=== PATIENT | female | born 1945 | race African-American/Black ===

== ENCOUNTER → 2016-06-06 | Outpatient (CLI) | payer MEDICARE, OTHER ==
[~2016-06-06] MED LIST: ACULAR 3 ML3 ML OS; ASPIRIN 32325 MG/TAB PO; ASPIRIN 81M81 MG/TA2 PO; ASPIRIN E.C. 8181 MG PO; B/P MED; CHOLESTEROL1 POW; FISH OIL SUPER1 SGL PO; FLONASE0.05 MG/AC NS; FLOVENT 110MCG7.9 GM IH; FUROSEMIDE; GLUCOTROL XL10 MG PO; ISORDIL TITRADO30 MG PO; JANUVIA 100MG100 MG PO; JANUVIA100 MG PO; KLOR-CON M1010 MEQ PO; LANTUS SOLOS100 U/ML SQ; LASIX 20MG TABL20 MG PO; LASIX 40MG TABL40 MG PO; LIPITOR 40MG TA40 MG PO; LIPITOR20 MG PO; LISINOPRIL/HCTZ1 TA2 PO; LORTAB 5/500 501 TAB PO; METFORMIN500 MG PO; NAPROSYN500 MG PO; NEURONTIN300 MG/CAP PO; NEXIUM 20MG20 MG PO; NITROSTAT0.3 MG SL; NITROSTAT0.4 MG/TAB SL; NORVASC 10MG10 MG PO; NORVASC 5MG5 MG/TAB PO; OCUFLOX OPHTH DR5 ML; OMNICEF 300MG300 MG PO; PEPCID 20MG TAB20 MG PO; PHENERGAN 25 TA25 MG PO; PHENERGAN25 MG RC; PLAVIX 75MG TAB75 MG PO; PRAVACHOL 40MG40 MG PO; PRED FORTE 1 ML1 ML OP; PRED FORTE 1 ML1 ML OU; PRILOSEC 20MG20 MG PO; PRINZIDE 25 MG-1 TAB PO; SINGULAIR; SINGULAIR10 MG PO; TOPROL XL 25MG25 MG PO; VENTOLIN0.09 MG IH; VITAMIN D 50,1.25 MG PO; ZETIA 10MG TAB10 MG PO; ZITHROMAX 250M250 MG PO; ZYRTEC 10MG10 MG PO; blood pressure med; cholesterol med
== END ==
LOC: COL.PUL 11:50
DX: R05 Cough (principal)
CPT/HCPCS: J7674

== ENCOUNTER 2016-07-30 12:56 | Observation (INO) | payer MEDICARE, OTHER ==
[~2016-07-30] VITALS: Ht 162.6 cm; Wt 89.9 kg
[~2016-07-30 12:56] MED LIST changes: -ACULAR 3 ML3 ML OS; -FLOVENT 110MCG7.9 GM IH; -GLUCOTROL XL10 MG PO; -NITROSTAT0.3 MG SL; -NORVASC 10MG10 MG PO; -OMNICEF 300MG300 MG PO; -PRAVACHOL 40MG40 MG PO; -PRED FORTE 1 ML1 ML OU; -PRILOSEC 20MG20 MG PO; -ZYRTEC 10MG10 MG PO
[2016-07-30 13:06] VITALS: BP 146/58; PULSE 67; TEMP 97.7
[2016-07-30] MEDS ORDERED: LASIX 20MG TABL20 MG PO (14:36)
[2016-07-30] MEDS ORDERED: PRED FORTE 1 ML1 ML OU (14:37)
[2016-07-30] MEDS ORDERED: ZYRTEC 10MG10 MG PO (14:38)
[2016-07-30] MEDS ORDERED: ACULAR 3 ML3 ML OS (14:39)
[2016-07-30] MEDS ORDERED: NORVASC 10MG10 MG PO (14:39)
[2016-07-30] MEDS ORDERED: PRAVACHOL 40MG40 MG PO (14:39)
[2016-07-30] MEDS ORDERED: GLUCOTROL XL10 MG PO (14:40)
[2016-07-30] MEDS ORDERED: FLOVENT 110MCG7.9 GM IH (14:40)
[2016-07-30] MEDS ORDERED: NITROSTAT0.3 MG SL (14:43)
[2016-07-30] MEDS ORDERED: PRILOSEC 20MG20 MG PO (14:43)
[2016-07-30 18:53] VITALS: BP 138/69; PULSE 62; TEMP 98.3
[2016-07-30 21:19] VITALS: BP 140/55; PULSE 64; TEMP 97.9
[2016-07-31] VITALS (12 sets, daily range): BP systolic 131–158; BP diastolic 56–84; PULSE 56–72; TEMP 97.8–98.5
[2016-08-01 01:19] VITALS: BP 109/52; PULSE 55; TEMP 98.5
[2016-08-01 06:27] VITALS: BP 116/54; PULSE 60; TEMP 98.5
[2016-08-08] MEDS ORDERED: OMNICEF 300MG300 MG PO (17:43)
== END 2016-08-01 09:35 | disposition home or self-care (01) ==
LOC: SURG 12:56 → SDCO 12:56 → SURG 12:57 → SDCO 18:00 → SURG 07-31 09:28
DX: N20.1 Calculus of ureter (principal); Z95.5 Presence of coronary angioplasty implant and graft; E78.00 Pure hypercholesterolemia, unspecified; E11.9 Type 2 diabetes mellitus without complications; Z79.4 Long term (current) use of insulin; I10 Essential (primary) hypertension; I25.10 Atherosclerotic heart disease of native coronary artery without angina pectoris; G47.33 Obstructive sleep apnea (adult) (pediatric); K21.9 Gastro-esophageal reflux disease without esophagitis
CPT/HCPCS: OP; C1769; C2617; G0378; G0379; J0690; J2270; J2405; J2704; J3010; J7030; Q9967

== ENCOUNTER 2016-08-06 11:01 | Emergency (ER) | payer MEDICARE, OTHER ==
[~2016-08-06] VITALS: Ht 162.6 cm; Wt 90.5 kg
[~2016-08-06 11:01] MED LIST changes: +ACULAR 3 ML3 ML OS; +FLOVENT 110MCG7.9 GM IH; +GLUCOTROL XL10 MG PO; +NITROSTAT0.3 MG SL; +NORVASC 10MG10 MG PO; +PRAVACHOL 40MG40 MG PO; +PRED FORTE 1 ML1 ML OU; +PRILOSEC 20MG20 MG PO; +ZYRTEC 10MG10 MG PO
[2016-08-06 11:02] VITALS: TEMP 98.6
[2016-08-06 12:14] LABS: BASO % 0.3 % (0.0-2.0); EOS # 0.4 (0.0-0.7); GRAN # 3.6 (1.4-6.5); HEMATOCRIT 37.5 % (37.0-47.0); LYMPH # 1.8 (1.2-3.4); LYMPH % 29.2 % (20.0-51.0); MEAN CELL VOLUME 84 fl (80.0-100.0); MEAN CORPUSCULAR HEMOGLOBIN 26 pg (27.0-31.0); MEAN CORPUSCULAR HGB CONC 31 g/dl (33.0-37.0); MEAN PLATELET VOLUME 11.5 fl (7.4-10.4); MONO # 0.4 (0.1-0.6); MONO % 6.2 % (1.7-9.3); PLATELET COUNT 235 K/mm3 (130-400); RED BLOOD COUNT 4.45 M/mm3 (4.10-5.30); WHITE BLOOD COUNT 6.1 K/mm3 (4.8-10.8)
[2016-08-06 12:18] LABS: HEMOGLOBIN 11.7 g/dl (12.5-16.0)
[2016-08-06 12:22] LABS: ADJUSTED CALCIUM 9.2 mg/dL (8.4-10.2); ALANINE AMINOTRANSFERASE 21 U/L (9-52); ALBUMIN 3.7 gm/dL (3.5-5.0); ALKALINE PHOSPHATASE 87 U/L (50-136); ANION GAP 14 mmol/L (7-16); BILIRUBIN,TOTAL 0.5 mg/dL (0.0-1.0); BLOOD UREA NITROGEN 15 mg/dL (7-17); CARBON DIOXIDE 27 mmol/L (22-30); CHLORIDE 104 mmol/L (98-107); CREATININE, serum 0.79 mg/dL (0.52-1.25); GLUCOSE 160 mg/dL (74-106); LIPASE 65 U/L (23-300); POTASSIUM 3.8 mmol/L (3.4-5.0); SODIUM 145 mmol/L (137-145); TOTAL PROTEIN 6.8 gm/dL (6.4-8.2)
[2016-08-06 12:26] LABS: COLLECTION METHOD CLEAN CATCH
[2016-08-06 12:33] LABS: B-TYPE NATRIURETIC PEPTIDE 25 pg/mL (0-125)
[2016-08-06 12:34] LABS: TROPONIN-I < 0.012 ng/mL (0.000-0.034)
[2016-08-06 12:36] LABS: PH 6 (5-8); URINE APPEARANCE Hazy; URINE BACTERIA None Seen /hpf; URINE BILIRUBIN Negative (NEGATIVE); URINE BLOOD 3+ (NEGATIVE); URINE CALCIUM OXALATE CRYSTAL Present /hpf; URINE COLOR Yellow; URINE GLUCOSE Negative (NEGATIVE); URINE KETONE Negative (NEGATIVE); URINE LEUKOCYTE ESTERASE 2+ (NEGATIVE); URINE PROTEIN(semi-quant) 1+ (NEGATIVE); URINE RBC >50 /hpf; URINE UROBILINOGEN Negative (NEGATIVE)
[2016-08-06 16:13] VITALS: BP 134/78; PULSE 63
[2016-08-08] MEDS ORDERED: OMNICEF 300MG300 MG PO (17:43)
== END 2016-08-06 16:16 | disposition home or self-care (01) ==
LOC: COL.ER 11:01
PROVIDERS: Emergency Medicine
DX: R07.89 Other chest pain (principal); E11.9 Type 2 diabetes mellitus without complications; I10 Essential (primary) hypertension; I25.10 Atherosclerotic heart disease of native coronary artery without angina pectoris; E78.00 Pure hypercholesterolemia, unspecified; M19.90 Unspecified osteoarthritis, unspecified site; Z79.84 Long term (current) use of oral hypoglycemic drugs; Z95.5 Presence of coronary angioplasty implant and graft; Z96.0 Presence of urogenital implants; Z90.710 Acquired absence of both cervix and uterus
CPT/HCPCS: J7030

== ENCOUNTER 2017-04-02 16:11 | Observation (INO) | payer MEDICARE, OTHER ==
[~2017-04-02] VITALS: Ht 162.6 cm; Wt 90.6 kg
[~2017-04-02 16:11] MED LIST changes: +OMNICEF 300MG300 MG PO
[2017-04-02 19:34] VITALS: BP 123/44; PULSE 70; TEMP 98.3
[2017-04-02 20:17] VITALS: BP 131/45; PULSE 72
[2017-04-02 23:41] VITALS: BP 145/59; PULSE 54; TEMP 97.9
[2017-04-03 03:35] VITALS: BP 129/58; PULSE 75; TEMP 97.9
[2017-04-03 06:43] LABS: BASO % 0.3 % (0.0-2.0); EOS # 0.3 (0.0-0.7); EOS % 4.5 % (0-4.0); GRAN # 2.8 (1.4-6.5); GRAN % 47.2 % (42.2-75.2); HEMATOCRIT 38.3 % (37.0-47.0); LYMPH # 2.4 (1.2-3.4); LYMPH % 40.4 % (20.0-51.0); MEAN CELL VOLUME 84 fl (80.0-100.0); MEAN CORPUSCULAR HEMOGLOBIN 26 pg (27.0-31.0); MEAN CORPUSCULAR HGB CONC 31 g/dl (33.0-37.0); MEAN PLATELET VOLUME 12.7 fl (7.4-10.4); MONO # 0.4 (0.1-0.6); MONO % 7.4 % (1.7-9.3); PLATELET COUNT 186 K/mm3 (130-400); RED BLOOD COUNT 4.55 M/mm3 (4.10-5.30)
[2017-04-03 06:59] LABS: ALBUMIN 3.6 gm/dL (3.5-5.0); BILIRUBIN,TOTAL 0.3 mg/dL (0.0-1.0); CALCIUM 8.9 mg/dL (8.4-10.2); CREATININE, serum 0.81 mg/dL (0.52-1.25); POTASSIUM 3.7 mmol/L (3.4-5.0); TOTAL PROTEIN 6.5 gm/dL (6.4-8.2)
[2017-04-03 07:00] LABS: HEMOGLOBIN 11.8 g/dl (12.5-16.0)
[2017-04-03 07:41] VITALS: BP 148/69; PULSE 75; TEMP 98.4
[2017-04-03] MEDS ORDERED: PLAVIX 75MG TAB75 MG PO (07:59)
[2017-04-03] MEDS ORDERED: IMDUR 60MG60 MG/TAB PO (07:59)
[2017-04-03] MEDS ORDERED: HCTZ 25MG TAB25 MG PO (08:00)
[2017-04-03] MEDS ORDERED: CRESTOR40 MG PO (08:00)
[2017-04-03 09:19] VITALS: BP 138/40; BP 147/73; PULSE 72; PULSE 75
[2017-04-03 09:21] VITALS: BP 150/84; PULSE 82
[2017-04-03 12:54] VITALS: BP 141/73; PULSE 90; TEMP 98.9
== END 2017-04-03 16:29 | disposition home or self-care (01) ==
LOC: MEDICAL 16:11
PROVIDERS: Physician Assistant
DX: R42 Dizziness and giddiness (principal); R07.89 Other chest pain; I25.10 Atherosclerotic heart disease of native coronary artery without angina pectoris; I10 Essential (primary) hypertension; E78.5 Hyperlipidemia, unspecified; E11.9 Type 2 diabetes mellitus without complications; G47.33 Obstructive sleep apnea (adult) (pediatric); Z79.01 Long term (current) use of anticoagulants; Z79.84 Long term (current) use of oral hypoglycemic drugs; Z95.5 Presence of coronary angioplasty implant and graft; Z90.710 Acquired absence of both cervix and uterus; Z82.49 Family history of ischemic heart disease and other diseases of the circulatory system; Z83.3 Family history of diabetes mellitus; Z80.0 Family history of malignant neoplasm of digestive organs
CPT/HCPCS: G0378; G0379; G8978-GP; G8979-GP; J1650; J1815; J7030

== ENCOUNTER 2017-08-20 17:20 | Inpatient (IN) | payer MEDICARE, OTHER ==
[~2017-08-20] VITALS: Ht 162.6 cm; Wt 83.8 kg
[2017-08-20] VITALS (7 sets, daily range): BP systolic 129–154; BP diastolic 45–73; PULSE 48–59; TEMP 97.2–98.9
[~2017-08-20 17:20] MED LIST changes: +CRESTOR40 MG PO; +HCTZ 25MG TAB25 MG PO; +IMDUR 60MG60 MG/TAB PO
[2017-08-20] MEDS ORDERED: TYLENOL 325MG325 MG PO (18:33)
[2017-08-20] MEDS ORDERED: PRED FORTE 1 ML1 ML OP (18:33)
[2017-08-20] MEDS ORDERED: ASPIRIN 81M81 MG/TA2 PO (18:34)
[2017-08-20] MEDS ORDERED: PRILOSEC 20MG20 MG PO (18:34)
[2017-08-20] MEDS ORDERED: JARDIANCE10 PO (18:35)
[2017-08-20] MEDS ORDERED: XALATAN EYE DROPS OD (18:35)
[2017-08-20] MEDS ORDERED: TOBRADEX EYE DRO5 ML OP (18:36)
[2017-08-20] MEDS ORDERED: PATANOL OPHTHALM5 ML OD (18:37)
[2017-08-20] MEDS ORDERED: INSLANT SQ (18:38)
[2017-08-20] MEDS ORDERED: ALPHAGAN OPHTH D5 ML OU (18:38)
[2017-08-20 19:02] LABS: CHOLESTEROL 169 mg/dL (120-200); CHOLESTEROL RISK RATIO 4.3; HDL CHOLESTEROL 39 mg/dL; LDL CHOLESTEROL 118 mg/dL; MAGNESIUM 2.1 mg/dL (1.6-2.3); TRIGLYCERIDE 60 mg/dL
[2017-08-20 19:18] LABS: TROPONIN-I < 0.012 ng/mL (0.000-0.034)
[2017-08-21] VITALS (373 sets, daily range): BP systolic 106–155; BP diastolic 52–96; PULSE 53–73; TEMP 97.8–98.2; O2SAT 77–100
[2017-08-21 10:21] LABS: BASO % 0.2 % (0.0-2.0); EOS # 0.3 (0.0-0.7); EOS % 6.7 % (0-4.0); GRAN # 2.6 (1.4-6.5); GRAN % 53.8 % (42.2-75.2); HEMATOCRIT 40.8 % (37.0-47.0); HEMOGLOBIN 12.7 g/dl (12.5-16.0); LYMPH # 1.6 (1.2-3.4); LYMPH % 32.6 % (20.0-51.0); MEAN CELL VOLUME 84 fl (80.0-100.0); MEAN CORPUSCULAR HEMOGLOBIN 26 pg (27.0-31.0); MEAN CORPUSCULAR HGB CONC 31 g/dl (33.0-37.0); MEAN PLATELET VOLUME 12.1 fl (7.4-10.4); MONO # 0.3 (0.1-0.6); MONO % 6.7 % (1.7-9.3); PLATELET COUNT 214 K/mm3 (130-400); RED BLOOD COUNT 4.86 M/mm3 (4.10-5.30); REDCELL DISTRIBUTION WIDTH-CV 13.7 % (11.5-14.5)
[2017-08-21 10:33] LABS: ANION GAP 11 mmol/L (7-16); BLOOD UREA NITROGEN 12 mg/dL (7-17); CARBON DIOXIDE 24 mmol/L (22-30); CHLORIDE 105 mmol/L (98-107); CREATININE, serum 0.78 mg/dL (0.52-1.25); GLUCOSE 112 mg/dL (74-106); POTASSIUM 3.9 mmol/L (3.4-5.0); SODIUM 140 mmol/L (137-145)
[2017-08-21 10:50] LABS: TROPONIN-I < 0.012 ng/mL (0.000-0.034)
[2017-08-21 12:51] LABS: CHOLESTEROL RISK RATIO 4.6
[2017-08-22] VITALS (497 sets, daily range): BP systolic 126–130; BP diastolic 67–89; PULSE 52–62; TEMP 97.4–98; O2SAT 88–100
[2017-08-22 06:01] LABS: BASO % 0.4 % (0.0-2.0); EOS # 0.3 (0.0-0.7); EOS % 5.2 % (0-4.0); GRAN % 55.1 % (42.2-75.2); HEMATOCRIT 39.5 % (37.0-47.0); HEMOGLOBIN 12.4 g/dl (12.5-16.0); LYMPH # 1.7 (1.2-3.4); LYMPH % 30.8 % (20.0-51.0); MEAN CELL VOLUME 83 fl (80.0-100.0); MEAN CORPUSCULAR HEMOGLOBIN 26 pg (27.0-31.0); MEAN CORPUSCULAR HGB CONC 31 g/dl (33.0-37.0); MEAN PLATELET VOLUME 11.9 fl (7.4-10.4); MONO # 0.5 (0.1-0.6); MONO % 8.3 % (1.7-9.3); PLATELET COUNT 196 K/mm3 (130-400); RED BLOOD COUNT 4.74 M/mm3 (4.10-5.30); REDCELL DISTRIBUTION WIDTH-CV 13.6 % (11.5-14.5)
[2017-08-22 06:10] LABS: CALCIUM 8.7 mg/dL (8.4-10.2); CREATININE, serum 0.73 mg/dL (0.52-1.25); POTASSIUM 3.8 mmol/L (3.4-5.0)
[2017-08-22] MEDS ORDERED: TOPROL XL 25MG25 MG PO (09:44)
[2017-08-22] MEDS ORDERED: ZETIA 10MG TAB10 MG PO (11:12)
[2017-08-22] MEDS ORDERED: ASPIRIN 32325 MG/TAB PO (11:28)
== END 2017-08-22 13:45 | disposition home or self-care (01) | DRG 247 ==
LOC: MEDICAL 17:20 → ICU 17:50 → MEDICAL 17:50 → ICU 17:51
PROVIDERS: Family Medicine; Nurse Practitioner Family; Physician Assistant
PROC: 027034Z Dilation of Coronary Artery, One Artery with Drug-eluting Intraluminal Device, Percutaneous Approach (ICD-10-PCS; principal; 2017-08-21)
PROC: 4A023N7 Measurement of Cardiac Sampling and Pressure, Left Heart, Percutaneous Approach (ICD-10-PCS; 2017-08-21)
PROC: B2151ZZ Fluoroscopy of Left Heart using Low Osmolar Contrast (ICD-10-PCS; 2017-08-21)
PROC: B2111ZZ Fluoroscopy of Multiple Coronary Arteries using Low Osmolar Contrast (ICD-10-PCS; 2017-08-21)
DX: I25.110 Atherosclerotic heart disease of native coronary artery with unstable angina pectoris (principal); I10 Essential (primary) hypertension; E78.5 Hyperlipidemia, unspecified; E11.9 Type 2 diabetes mellitus without complications; E66.9 Obesity, unspecified; G47.33 Obstructive sleep apnea (adult) (pediatric); Z79.4 Long term (current) use of insulin; R00.1 Bradycardia, unspecified; Z79.84 Long term (current) use of oral hypoglycemic drugs
CPT/HCPCS: 99223-AI; 99239; C1725; C1769; C1874; C1887; C9607; G0378; G0379; J0583; J1644; J1650; J1815; J2250; J2270; J3010; J7030

== ENCOUNTER 2017-08-26 18:03 | Inpatient (IN) | payer MEDICARE, OTHER ==
[~2017-08-26] VITALS: Ht 162.6 cm; Wt 82.9 kg
[2017-08-26] VITALS (58 sets, daily range): BP systolic 148; BP diastolic 79; PULSE 52; TEMP 97.5; O2SAT 92–99
[~2017-08-26 18:03] MED LIST changes: +ALPHAGAN OPHTH D5 ML OU; +INSLANT SQ; +JARDIANCE10 PO; +PATANOL OPHTHALM5 ML OD; +TOBRADEX EYE DRO5 ML OP; +TYLENOL 325MG325 MG PO; +XALATAN EYE DROPS OD
[2017-08-26 18:51] LABS: BASO % 0.3 % (0.0-2.0); EOS # 0.3 (0.0-0.7); EOS % 4.4 % (0-4.0); GRAN # 4.1 (1.4-6.5); GRAN % 58.5 % (42.2-75.2); HEMOGLOBIN 12.1 g/dl (12.5-16.0); LYMPH % 28.7 % (20.0-51.0); MEAN CELL VOLUME 83 fl (80.0-100.0); MEAN CORPUSCULAR HEMOGLOBIN 26 pg (27.0-31.0); MEAN CORPUSCULAR HGB CONC 32 g/dl (33.0-37.0); MEAN PLATELET VOLUME 12.5 fl (7.4-10.4); MONO # 0.5 (0.1-0.6); MONO % 7.7 % (1.7-9.3); PLATELET COUNT 207 K/mm3 (130-400); RED BLOOD COUNT 4.58 M/mm3 (4.10-5.30)
[2017-08-26 19:01] LABS: ALBUMIN 3.6 gm/dL (3.5-5.0); BILIRUBIN,TOTAL 0.4 mg/dL (0.0-1.0); C-REACTIVE PROTEIN 0.9 mg/dL (0.0-0.9); CALCIUM 9.3 mg/dL (8.4-10.2); CREATININE, serum 0.98 mg/dL (0.52-1.25); POTASSIUM 3.8 mmol/L (3.4-5.0); TOTAL PROTEIN 7.4 gm/dL (6.4-8.2)
[2017-08-26 19:16] LABS: TROPONIN-I 0.047 ng/mL (0.000-0.034)
[2017-08-26 20:13] LABS: PROTHROMBIN TIME 11.8 SECONDS (9.7-12.8)
[2017-08-27] VITALS (486 sets, daily range): BP systolic 83–153; BP diastolic 32–79; PULSE 47–91; TEMP 97.5–98; O2SAT 88–100
[2017-08-27 06:19] LABS: BASO % 0.4 % (0.0-2.0); EOS # 0.3 (0.0-0.7); GRAN # 2.7 (1.4-6.5); GRAN % 48.2 % (42.2-75.2); HEMOGLOBIN 11.9 g/dl (12.5-16.0); LYMPH # 2.1 (1.2-3.4); LYMPH % 36.2 % (20.0-51.0); MEAN CELL VOLUME 83 fl (80.0-100.0); MEAN CORPUSCULAR HEMOGLOBIN 26 pg (27.0-31.0); MEAN CORPUSCULAR HGB CONC 31 g/dl (33.0-37.0); MEAN PLATELET VOLUME 12.3 fl (7.4-10.4); MONO # 0.5 (0.1-0.6); PLATELET COUNT 195 K/mm3 (130-400); RED BLOOD COUNT 4.56 M/mm3 (4.10-5.30)
[2017-08-27 06:23] LABS: CREATININE, serum 0.9 mg/dL (0.52-1.25); POTASSIUM 3.8 mmol/L (3.4-5.0)
[2017-08-27 06:42] LABS: TROPONIN-I 0.046 ng/mL (0.000-0.034)
[2017-08-28 00:09] VITALS: BP 136/60; PULSE 54; TEMP 98.6
[2017-08-28 03:24] VITALS: BP 165/63; PULSE 70; TEMP 98.8
[2017-08-28 07:43] VITALS: BP 140/54; PULSE 68; TEMP 98
[2017-08-28 11:55] VITALS: BP 131/53; PULSE 56; TEMP 98.8
[2017-08-28 16:37] VITALS: BP 136/63; PULSE 50; TEMP 98.4
[2017-08-28 19:45] VITALS: BP 104/64; PULSE 62; TEMP 98.7
[2017-08-29 00:01] VITALS: BP 143/63; PULSE 55; TEMP 98
[2017-08-29 04:44] VITALS: BP 146/49; PULSE 60; TEMP 97.5
[2017-08-29 07:10] VITALS: BP 150/75; PULSE 66; TEMP 97.6
== END 2017-08-29 12:17 | disposition home or self-care (01) | DRG 313 ==
LOC: COL.ER 18:03 → ICU 20:25 → MEDICAL 08-27 15:52
PROVIDERS: Emergency Medicine; Nurse Practitioner
DX: R07.89 Other chest pain (principal); I10 Essential (primary) hypertension; E11.9 Type 2 diabetes mellitus without complications; I25.10 Atherosclerotic heart disease of native coronary artery without angina pectoris; Z95.5 Presence of coronary angioplasty implant and graft; Z79.4 Long term (current) use of insulin; R20.2 Paresthesia of skin; G47.33 Obstructive sleep apnea (adult) (pediatric)
CPT/HCPCS: OP; 99223-AI; 99232-AI; A9502; A9585; G0378; J1650; J1815; J2270; J2405; J2785

== ENCOUNTER 2018-01-21 14:18 | Inpatient (IN) | payer MEDICARE, OTHER ==
[~2018-01-21] VITALS: Ht 162.6 cm; Wt 91.2 kg
[2018-01-21 15:53] VITALS: BP 156/67; PULSE 65; TEMP 97.4
[2018-01-21 16:00] VITALS: BP 155/65; PULSE 67; TEMP 97.6
[2018-01-21] MEDS ORDERED: GLUCOTROL XL10 MG PO (16:45)
[2018-01-21] MEDS ORDERED: ASPIRIN 81M81 MG/TA2 PO (16:46)
[2018-01-21] MEDS ORDERED: DULCOLAX STOOL100 MG PO (16:46)
[2018-01-21] MEDS ORDERED: XALATAN EYE DROPS OU (16:48)
[2018-01-21] MEDS ORDERED: ACULAR 5 ML5 ML OU (16:48)
[2018-01-21] MEDS ORDERED: PATANOL OPHTHALM5 ML OU (16:50)
[2018-01-21] MEDS ORDERED: TOBRADEX EYE DRO5 ML OP (16:50)
[2018-01-21 17:17] LABS: TROPONIN-I < 0.012 ng/mL (0.000-0.034)
[2018-01-21 19:24] VITALS: BP 146/61; PULSE 57; TEMP 97.7
[2018-01-21 23:45] VITALS: BP 133/57; PULSE 65; TEMP 98.2
[2018-01-22] VITALS (19 sets, daily range): BP systolic 116–165; BP diastolic 53–90; PULSE 50–101; TEMP 97.7–98.7
[2018-01-22 06:11] LABS: BASO % 0.2 % (0.0-2.0); EOS # 0.2 (0.0-0.7); EOS % 4.4 % (0-4.0); GRAN # 2.1 (1.4-6.5); GRAN % 43.5 % (42.2-75.2); LYMPH # 2.1 (1.2-3.4); LYMPH % 42.9 % (20.0-51.0); MEAN CELL VOLUME 84 fl (80.0-100.0); MEAN CORPUSCULAR HEMOGLOBIN 26 pg (27.0-31.0); MEAN CORPUSCULAR HGB CONC 31 g/dl (33.0-37.0); MEAN PLATELET VOLUME 12.1 fl (7.4-10.4); MONO # 0.4 (0.1-0.6); MONO % 8.8 % (1.7-9.3); PLATELET COUNT 177 K/mm3 (130-400); RED BLOOD COUNT 4.28 M/mm3 (4.10-5.30); REDCELL DISTRIBUTION WIDTH-CV 14.8 % (11.5-14.5)
[2018-01-22 06:21] LABS: ALANINE AMINOTRANSFERASE 27 U/L (9-52); ALBUMIN 3.1 gm/dL (3.5-5.0); ALKALINE PHOSPHATASE 59 U/L (50-136); ANION GAP 3 mmol/L (7-16); AST,SGOT 23 U/L (15-37); BILIRUBIN,TOTAL 0.2 mg/dL (0.0-1.0); BLOOD UREA NITROGEN 15 mg/dL (7-17); CALCIUM 8.3 mg/dL (8.4-10.2); CARBON DIOXIDE 29 mmol/L (22-30); CHLORIDE 112 mmol/L (98-107); CHOLESTEROL 131 mg/dL (120-200); CHOLESTEROL RISK RATIO 3.1; CREATININE, serum 0.64 mg/dL (0.52-1.25); GLUCOSE 105 mg/dL (74-106); HDL CHOLESTEROL 41 mg/dL; LDL CHOLESTEROL 78 mg/dL; SODIUM 144 mmol/L (137-145); TRIGLYCERIDE 60 mg/dL
[2018-01-22 06:24] LABS: HEMATOCRIT 36.1 % (37.0-47.0)
[2018-01-22 06:30] LABS: TROPONIN-I < 0.012 ng/mL (0.000-0.034)
[2018-01-23 01:10] VITALS: BP 145/63; PULSE 77
[2018-01-23 07:25] VITALS: BP 179/74; PULSE 63; TEMP 98.7
[2018-01-23 08:46] LABS: BASO % 0.4 % (0.0-2.0); EOS # 0.3 (0.0-0.7); EOS % 4.7 % (0-4.0); GRAN # 3.3 (1.4-6.5); GRAN % 57.3 % (42.2-75.2); HEMOGLOBIN 11.7 g/dl (12.5-16.0); LYMPH # 1.7 (1.2-3.4); LYMPH % 30.4 % (20.0-51.0); MEAN CELL VOLUME 83 fl (80.0-100.0); MEAN CORPUSCULAR HEMOGLOBIN 26 pg (27.0-31.0); MEAN CORPUSCULAR HGB CONC 32 g/dl (33.0-37.0); MEAN PLATELET VOLUME 11.7 fl (7.4-10.4); MONO # 0.4 (0.1-0.6); PLATELET COUNT 193 K/mm3 (130-400); RED BLOOD COUNT 4.45 M/mm3 (4.10-5.30); REDCELL DISTRIBUTION WIDTH-CV 14.7 % (11.5-14.5)
[2018-01-23 08:49] LABS: HEMATOCRIT 36.9 % (37.0-47.0)
[2018-01-23 08:56] LABS: CALCIUM 8.6 mg/dL (8.4-10.2); CREATININE, serum 0.64 mg/dL (0.52-1.25); POTASSIUM 3.8 mmol/L (3.4-5.0)
[2018-01-23] MEDS ORDERED: ZESTRIL 20MG TA20 MG PO (09:00)
[2018-01-23] MEDS ORDERED: IMDUR 60MG60 MG/TAB PO (09:00)
[2018-01-23 11:41] VITALS: BP 120/55; PULSE 68; TEMP 98.6
== END 2018-01-23 12:25 | disposition home or self-care (01) | DRG 287 ==
LOC: MEDICAL 14:18
PROVIDERS: Internal Medicine Cardiovascular Disease; Physician Assistant
PROC: B2111ZZ Fluoroscopy of Multiple Coronary Arteries using Low Osmolar Contrast (ICD-10-PCS; principal; 2018-01-22)
PROC: B2151ZZ Fluoroscopy of Left Heart using Low Osmolar Contrast (ICD-10-PCS; 2018-01-22)
PROC: 4A023N7 Measurement of Cardiac Sampling and Pressure, Left Heart, Percutaneous Approach (ICD-10-PCS; 2018-01-22)
PROC: B31H1ZZ Fluoroscopy of Right Upper Extremity Arteries using Low Osmolar Contrast (ICD-10-PCS; 2018-01-22)
DX: R07.89 Other chest pain (principal); I25.10 Atherosclerotic heart disease of native coronary artery without angina pectoris; Z23 Encounter for immunization; I10 Essential (primary) hypertension; E78.5 Hyperlipidemia, unspecified; E11.9 Type 2 diabetes mellitus without complications; Z95.5 Presence of coronary angioplasty implant and graft; G47.33 Obstructive sleep apnea (adult) (pediatric); Z79.4 Long term (current) use of insulin
CPT/HCPCS: C1769; C1887; C9113; G0378; G8987-GO; G8988-GO; J1644; J1650; J1815; J2250; J3010; J7030

== ENCOUNTER 2022-04-17 16:09 | Observation (INO) | payer MEDICARE, OTHER ==
[~2022-04-17] VITALS: Ht 10.2 cm; Wt 88.0 kg
[~2022-04-17 16:09] MED LIST changes: +ACULAR 5 ML5 ML OU; +CEPHALEXIN500 M1 PO; +DULCOLAX STOOL100 MG PO; +MACROBID 1100 MG/CAP PO; -NITROSTAT0.3 MG SL; +PATANOL OPHTHALM5 ML OU; +RANEXA 500MG T500 MG PO; +XALATAN EYE DROPS OU; +ZESTRIL 20MG TA20 MG PO
[2022-04-17 17:23] VITALS: BP 99/45; PULSE 64; TEMP 97.9
--- NOTE | 2022-04-17 18:25 | NUR ---
DR. RODRIGUEZ CALLED TO NOTIFY NEW ADMISSION IS IN ROOM. DIET ORDER GIVEN VIA TELEPHONE ORDER.
--- NOTE | 2022-04-17 18:43 | NUR ---
PT IN BED, ALERT & ORIENTED. ASSISTED TO BATHROOM, GAIT STEADY BUT A LITTLE WEAK. BLOOD GLUCOSE 128. DINNER ORDERED, SNACK/WATER GIVEN. ADMISSION ASSESSMENT COMPLETE. PT AND FAMILY MEMBER ORIENTED TO ROOM. NO COMPLAINTS OTHER THAN BEING HUNGRY AND TIRED.
--- NOTE | 2022-04-17 20:30 | NUR ---
Initial shift assessment. Tele on patient, VSS, alert/oriented x4, Up to bathroom with standby assist, steady on feet- denies pain, called by supervisor mending that patient is covid + and needs to be moved to isolation room-
[2022-04-17 21:31] VITALS: BP 149/51; PULSE 56; TEMP 97.5
[2022-04-17 23:32] LABS: BASO % 0.3 % (0.0-2.0); EOS # 0.2 K/mm3 (0.0-0.7); EOS % 3.3 % (0.0-4.0); GRAN % 61.8 % (42.2-75.2); HEMOGLOBIN 10.3 g/dl (12.5-16.0); LYMPH # 1.7 K/mm3 (1.2-3.4); LYMPH % 26.1 % (20.0-51.0); MEAN CELL VOLUME 83 fl (80.0-100.0); MEAN CORPUSCULAR HEMOGLOBIN 25 pg (27-31); MEAN CORPUSCULAR HGB CONC 30 g/dl (33.0-37.0); MEAN PLATELET VOLUME 11.9 fl (7.4-10.4); MONO # 0.5 K/mm3 (0.1-0.6); MONO % 8.2 % (1.7-9.3); PLATELET COUNT 231 K/mm3 (130-400); RED BLOOD COUNT 4.07 M/mm3 (4.10-5.30); REDCELL DISTRIBUTION WIDTH-CV 14.9 % (11.5-14.5)
[2022-04-17 23:37] LABS: HEMATOCRIT 33.9 % (37.0-47.0)
[2022-04-17 23:48] LABS: ALBUMIN 2.9 gm/dL (3.4-4.8); BILIRUBIN,TOTAL 0.3 mg/dL (0.2-1.2); CALCIUM 8.1 mg/dL (8.4-10.2); CREATININE, serum 0.98 mg/dL (0.57-1.11); POTASSIUM 3.7 mmol/L (3.5-4.5)
[2022-04-18] VITALS (7 sets, daily range): BP systolic 110–164; BP diastolic 50–90; PULSE 55–78; TEMP 97.4–98.2
--- NOTE | 2022-04-18 06:10 | NUR ---
Now in room 303- droplet/contact isolation, Up to bathroom- steady on feet, requesting some hot tea,, understands to call for bathroom- using call light appropriately.
[2022-04-18 07:56] LABS: BASO % 0.3 % (0.0-2.0); EOS # 0.3 K/mm3 (0.0-0.7); EOS % 4.6 % (0.0-4.0); GRAN # 4.4 K/mm3 (1.4-6.5); GRAN % 62.5 % (42.2-75.2); HEMOGLOBIN 10.9 g/dl (12.5-16.0); LYMPH # 1.7 K/mm3 (1.2-3.4); LYMPH % 24.3 % (20.0-51.0); MEAN CELL VOLUME 83 fl (80.0-100.0); MEAN CORPUSCULAR HEMOGLOBIN 25 pg (27-31); MEAN CORPUSCULAR HGB CONC 30 g/dl (33.0-37.0); MEAN PLATELET VOLUME 11.9 fl (7.4-10.4); MONO # 0.6 K/mm3 (0.1-0.6); PLATELET COUNT 247 K/mm3 (130-400); RED BLOOD COUNT 4.35 M/mm3 (4.10-5.30); REDCELL DISTRIBUTION WIDTH-CV 14.9 % (11.5-14.5)
[2022-04-18 08:10] LABS: CALCIUM 8.4 mg/dL (8.4-10.2); CREATININE, serum 0.98 mg/dL (0.57-1.11); POTASSIUM 3.8 mmol/L (3.5-4.5)
--- NOTE | 2022-04-18 10:52 | NUR ---
The PA notified BESSIE that the hospitalist is recommending a CPAP for the patient and they inquired how to go about ordering one. The patient had one in the past, but no longer has one. BESSIE contacted Luis Antonio at [facility] to ask about this. Luis Antonio reports that Medicare will only pay for 1 CPAP, every five years. He checked the Medicare system and the patient is elgible for one. He states that they would need the patient's diagnostic sleep studies, a script that includes CPAP settings, and recent notes that document the patient needs one. BESSIE updated the PA. The patient's COVID results at [facility] came back positive. The patient was transferred to an isolation room. BESSIE contacted the patient to discuss discharge plan. The patient lives alone in [place]. She states that she has good friend support in the area. She reports independence with ADLs and does not have any DME. She receives primary care at [facility] and sees a female provider, but could not recall her name. She also receives her medications from [facility]. The patient does not have a DPOA-HC, but she was interested in obtaining a form, when she goes home. BESSIE placed a form on the patient's chart. The patient shares that she is and has five children: Edwin Bee (ph#[phone], [place]), Mary, Gavin, Bethany, and Julio. They all live out of state. BESSIE informed the patient how all her children would be her legal next of kin. The patient states that she would not want them to be her decision makers, but she is still trying to decide who she wants to designate as her DPOA-HC. The patient plans to return home upon discharge. BESSIE then addressed the CPAP. She is agreeable to getting it from [facility]. She then passed the phone to her friend, Rachna (ph#[phone]). Charu states that her and another friend, Lawanda, keep an eye out on the patient and help her. They report everything back to the patient's children. She thanks BESSIE for helping the patient and states that her or another friend will transport the patient home. *Discharge plan: home with friend support. Will need to get CPAP set up*
--- NOTE | 2022-04-18 11:05 | NUR ---
PT TRANSPORT OFF THE FLOOR TO MRI
[2022-04-18] MEDS ORDERED: IMDUR 30MG30 MG/TAB PO (13:45)
[2022-04-18] MEDS ORDERED: PROTONIX 40MG T40 MG PO (13:45)
[2022-04-18] MEDS ORDERED: COREG 25MG25 MG/TAB PO (13:46)
[2022-04-18] MEDS ORDERED: NORVASC 5MG5 MG/TAB PO (13:46)
[2022-04-18] MEDS ORDERED: ASPIRIN E.C. 8181 MG PO (13:46)
[2022-04-18] MEDS ORDERED: HCTZ 25MG TAB25 MG PO (13:47)
[2022-04-18] MEDS ORDERED: COSOPT 2%-0.5%10 ML OU (13:48)
[2022-04-18] MEDS ORDERED: LIQUIFILM TEARS15 ML OU (13:50)
[2022-04-18] MEDS ORDERED: INSLANT SQ (14:11)
[2022-04-18 15:19] LABS: CHOLESTEROL RISK RATIO 5.2
--- NOTE | 2022-04-18 21:34 | NUR ---
Patient assessed around 2049. Denies having pain and discomfort. Alert and oriented x 4. Voices no questions, needs, or concerns at this time. In bed with call light within reach. Bed alarm on.
[2022-04-19 03:06] VITALS: BP 134/44; PULSE 59; TEMP 98.3
--- NOTE | 2022-04-19 05:52 | NUR ---
Patient has been alert and oriented this shift. Awakens easily. Voices no questions, needs, or concerns at this time. In bed with call light within reach.
[2022-04-19 07:09] LABS: BASO % 0.2 % (0.0-2.0); EOS # 0.3 K/mm3 (0.0-0.7); EOS % 5.9 % (0.0-4.0); GRAN # 2.7 K/mm3 (1.4-6.5); GRAN % 51.6 % (42.2-75.2); HEMOGLOBIN 10.7 g/dl (12.5-16.0); LYMPH # 1.8 K/mm3 (1.2-3.4); LYMPH % 33.5 % (20.0-51.0); MEAN CELL VOLUME 83 fl (80.0-100.0); MEAN CORPUSCULAR HEMOGLOBIN 25 pg (27-31); MEAN CORPUSCULAR HGB CONC 30 g/dl (33.0-37.0); MONO # 0.5 K/mm3 (0.1-0.6); MONO % 8.6 % (1.7-9.3); PLATELET COUNT 244 K/mm3 (130-400); RED BLOOD COUNT 4.25 M/mm3 (4.10-5.30); REDCELL DISTRIBUTION WIDTH-CV 14.9 % (11.5-14.5)
[2022-04-19 07:11] LABS: HEMATOCRIT 35.4 % (37.0-47.0)
[2022-04-19 07:21] VITALS: BP 131/62; PULSE 68; TEMP 98
[2022-04-19 07:21] LABS: CALCIUM 8.7 mg/dL (8.4-10.2); CREATININE, serum 1.14 mg/dL (0.57-1.11); POTASSIUM 3.8 mmol/L (3.5-4.5)
--- NOTE | 2022-04-19 08:27 | NUR ---
EEG will have to be ordered as outpatient due to cardiopulmonary diagnostics being closed for the week and next week. RN notified.
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
--- NOTE | 2022-04-19 11:36 | NUR ---
Luis Antonio, at [facility], reports that the patient's sleep study does not qualify her for a CPAP, so they would not be able to get it set up. The patient has to have a RDI of 5 or above. He states that she would need to have a new sleep study to see if she would qualify now. SW updated the PA. SW met with the patient to update on the above. The patient verbalized understanding. SW also discussed home health services. The patient states that she may be moving into [facility] in [place], so she may not need any home health. She declined home health at this time. SW informed her that if she changes her mind, her PCP can help get this set up. The patient verbalized understanding. The patient is to discharge back home today, 04/19. No additional needs at this time.
[2022-04-19 12:03] VITALS: BP 93/53; PULSE 60; TEMP 98.2
[2022-04-19] MEDS ORDERED: BACTRIM DS 8001 TAB PO (14:10)
--- NOTE | 2022-04-19 14:20 | NUR ---
PT DISCHARGED TO HOME WITH ALL BELONGINGS. TAKEN HOME BY FRIENDS/CARETAKERS. PT AND FRIENDS EDUCATED ON DISCHARGE INSTRUCTIONS AND NEW MEDICATIONS. NOTIFIED THAT ANBTIBIOTIC IS BEING DISPENSED AT PREFERRED PHARMACY. PT AND FRIENDS VERBALIZED UNDERSTANDING. PT IS ALERT AND ORIENTED AT TIME OF DISCHARGE.
== END 2022-04-19 14:00 | disposition home or self-care (01) ==
LOC: MEDICAL 16:09
PROVIDERS: Physician Assistant; ADMIT Hospitalist
DX: R41.82 Altered mental status, unspecified (principal); U07.1 COVID-19; N39.0 Urinary tract infection, site not specified; B95.7 Other staphylococcus as the cause of diseases classified elsewhere; I65.23 Occlusion and stenosis of bilateral carotid arteries; I11.9 Hypertensive heart disease without heart failure; I25.10 Atherosclerotic heart disease of native coronary artery without angina pectoris; R93.0 Abnormal findings on diagnostic imaging of skull and head, not elsewhere classified; G47.33 Obstructive sleep apnea (adult) (pediatric); E11.39 Type 2 diabetes mellitus with other diabetic ophthalmic complication; E07.89 Other specified disorders of thyroid; I35.1 Nonrheumatic aortic (valve) insufficiency; R55 Syncope and collapse; R79.89 Other specified abnormal findings of blood chemistry; H42 Glaucoma in diseases classified elsewhere; Z79.4 Long term (current) use of insulin; Z87.891 Personal history of nicotine dependence; Z79.84 Long term (current) use of oral hypoglycemic drugs; Z79.899 Other long term (current) drug therapy; Z91.199 Patient's noncompliance with other medical treatment and regimen due to unspecified reason; Z79.82 Long term (current) use of aspirin; Z95.5 Presence of coronary angioplasty implant and graft; Z28.310 Unvaccinated for COVID-19; Z28.9 Immunization not carried out for unspecified reason; Z79.02 Long term (current) use of antithrombotics/antiplatelets
CPT/HCPCS: A9270; A9575; G0378; G0379; J0696; J1815; J2405